=== PATIENT | male | born 1955 | race Caucasian/White ===

== ENCOUNTER 2016-11-22 22:38 | Inpatient (IN) | payer OTHER ==
--- NOTE | ~2016-11-22 | OP ---
Record Of Operation [facility] [address] [place]. [address] NAME: NISSA WRAY : 57 STATUS : ADM IN [facility]#: [id number] AGE: 61 ADM/REG DATE : 11/22/16 MR#: [id number] REPORT SERV DATE: 11/29/16 DICTATED BY: MENG MCKINNEY DATE: 11/29/16 REPORT STATUS : Draft TRANSCRIBED BY: MODL DATE: 11/29/16 DATE OF PROCEDURE: 11/29/2016 PREOPERATIVE DIAGNOSIS: Left forearm gram-positive cocci abscess, status post irrigation debridement and Vac-Pac placement, 11/27/2016 POSTOPERATIVE DIAGNOSIS: Left forearm gram-positive cocci abscess, status post irrigation debridement and Vac-Pac placement, 11/27/2016. PROCEDURE: Left forearm, 1. Repeat cultures. 2. Repeat irrigation and debridement of subcutaneous tissue using pulse lavage (3 L normal saline) and rongeur. 3. Vancomycin/gentamicin antibiotic bead placement. 4. Wound closure. SURGEON: Meng Mckinney M.D. PAPER BAGS SEWING MACHINE OPERATOR: Anam Arvizu. ANESTHESIA: General. ESTIMATED BLOOD LOSS: 2 mL. COMPLICATIONS: None. DISPOSITION: The patient tolerated the procedure well and was brought to recovery room in stable condition. PROCEDURE NOTE: The patient was brought to the operating room and placed in supine position after general anesthesia was administered. A pneumatic tourniquet was placed around the left proximal arm and the left upper extremity distal to the tourniquet was exsanguinated. The dressings were removed. The Vac-Pac was removed. Cultures were taken. Wound inspected and the wound was deemed clean enough for wound closure. Afterwards, the left upper extremity distal to the tourniquet was prepped and draped in the usual sterile manner. 3 L of normal saline was used to irrigate the wound via pulse lavage. A rongeur was used to remove any nonviable tissue in the edges of the incision. This debridement was carried out in the subcutaneous and skin region, and afterwards, the wound was packed with antibiotic beads made with 1 g of vancomycin and 240 mg of gentamicin (3/4th of the beads used). Wound closed was prolonged with Prolene suture, sterile dressing, and a volar splint was applied. Tourniquet was released. Arm was placed back in a sling, and the patient was taken out of general anesthesia and brought to recovery room in stable condition. /MODL Record Of Operation [facility] [address] [facility] [address] NAME: NISSA WRAY : 57 STATUS : ADM IN [facility]#: [id number] AGE: 61 ADM/REG DATE : 11/22/16 MR#: [id number] REPORT SERV DATE: 11/29/16 DICTATED BY: MENG MCKINNEY DATE: 11/29/16 REPORT STATUS : Draft TRANSCRIBED BY: SUE DATE: 11/29/16 Meng Mckinney M.D. / [id number] CC: Belinda Felder M.D.
--- NOTE | ~2016-11-22 | DS ---
Discharge Summary [address] [address] NAME: NISSA WRAY : 57 STATUS : DIS IN PAT#: [id number] AGE: 61 ADM/REG DATE : 11/22/16 MR#: [id number] REPORT SERV DATE: 12/01/16 DICTATED BY: PAULIE EMERY DATE: 11/30/16 REPORT STATUS : Draft TRANSCRIBED BY: MODL DATE: 11/30/16 ADMISSION DATE: 11/22/2016 DISCHARGE DATE: 11/30/2016 DISCHARGE DIAGNOSES: 1. Sepsis. 2. Left arm cellulitis. 3. Left forearm abscess. 4. New diagnosis of uncontrolled diabetes. 5. Hyperlipidemia. OPERATIONS AND PROCEDURES: 1. 11/27/2016, incision, drainage, cultures, debridement of subcutaneous tissue, irrigation using pulse lavage, and VAC pack placement left forearm abscess, Dr. Helton. 2. 11/29/2016, left forearm repeat cultures, repeat irrigation and debridement of subcutaneous tissue using pulse lavage and rongeur. Vancomycin, gentamicin, antibiotic bead placement, wound closure, Dr. Helton. PRESENT ILLNESS: This is a 61-year-old white male, regular patient of Dr. Ho Cadena, who was triaged in the emergency room on 11/22/2016 at 2059 hours with complaints of chilling and left arm swelling. Admission vital signs, blood pressure 125/77, temperature 97.5, pulse 91, respirations 18, O2 saturation 95%. After evaluation in the emergency room, he was referred to the Hospitalist Service for admission. He was seen by Dr. Eric Woodall and admitted as described on admission history and physical examination. Additional history included hitting his left arm against some steel with an abrasion type injury several days prior to admission. He subsequently noticed swelling and pain which accelerated. He developed purulent drainage. He then developed fever and chills and came to the emergency room for evaluation. ADDITIONAL HISTORY: Per Dr. Woodall. PHYSICAL EXAMINATION: Per Dr. Woodall. ADMISSION LABORATORY: Per Dr. Woodall. HOSPITAL COURSE: He was admitted by Dr. Woodall with diagnoses: 1. Sepsis. 2. Left arm cellulitis. 3. Sore throat. 4. Hyperglycemia. He was admitted to [address] [place] [address]. Cultures were obtained. He was placed on IV vancomycin. Discharge Summary [address] [place]. [address] NAME: NISSA WRAY : 57 STATUS : DIS IN PAT#: [id number] AGE: 61 ADM/REG DATE : 11/22/16 MR#: [id number] REPORT SERV DATE: 12/01/16 DICTATED BY: PAULIE EMERY DATE: 11/30/16 REPORT STATUS : Draft TRANSCRIBED BY: MODL DATE: 11/30/16 Insulin was initiated. His hospitalist care was assumed by Dr. Davis. His hospital course from 11/22/2016 through 11/26/2016 is as outlined on the interim summary dictated by Dr. Davis. The patient was subsequently seen by the undersigned on 11/27/2016, 11/28/2016, 11/29/2016, and 11/30/2016. On 11/27/2016, he felt better. His left arm edema and erythema had improved. However, he had a definite left forearm fluctuant swelling with some drainage. Venous ultrasound imaging had been ordered by Dr. Davis the previous day. This demonstrated no DVT, but a complex fluid collection consistent with abscess. Orthopedic Hand consultation was obtained. He was seen quickly by Dr. Helton, whose impression was left forearm abscess. The patient was taken the OR on that date for the procedure as described above. Notable operative findings included "a burst of pus emanated from the area." Remarkably, routine cultures from his initial OR I and D despite a positive gram-positive cocci, gram stain have been negative to date. There were no complications with this procedure. His clinical improvement continued. He was taken back to the OR for a repeat I and D as described on 11/29/2016 which he tolerated well. At the time of the second procedure, Dr. Helton felt, his wound could be closed after placement vancomycin, gentamicin, antibiotic bead placement. When seen on 11/20/2016, except for some burning at his incision, he otherwise felt well and was asymptomatic. He was still on IV vancomycin. Culture data was as noted. His white count was 13.8. His procalcitonin level had fallen from 6.46 on the 11/24/2016 to 0.17 on the 11/30/2016. From an infection standpoint, it was felt that he could safely be discharged to home with outpatient followup to see Dr. Cadena next week and Dr. Helton in [address] Helton had previously indicated that the patient's left arm dressing was to remain clean and dry until followup with him in office. Relative to the patient's diabetes, his hemoglobin A1c was 11.9 on admission. His admission blood glucose was 250. During his hospitalization, he was started on bedtime basal insulin and daytime metformin. 24 hours prior to admission a.c. and h.s. blood sugars were 148, 96, 91, and 182. The morning of discharge, fasting blood sugar 149 a.c., lunch 129. He was seen by diabetes education on 11/26/2016. He was given a glucose meter. He was instructed on insulin pens. Technique was demonstrated and was thought to be satisfactory with the use of same. Discharge Summary [address] [address] NAME: NISSA WRAY : 57 STATUS : DIS IN PAT#: [id number] AGE: 61 ADM/REG DATE : 11/22/16 MR#: [id number] REPORT SERV DATE: 12/01/16 DICTATED BY: PAULIE EMERY DATE: 11/30/16 REPORT STATUS : Draft TRANSCRIBED BY: SUE DATE: 11/30/16 In view of the above, he is being discharged today with followup as described. He will remain off work until outpatient followup and released in the future by Dr. Helton. DISCHARGE MEDICATIONS: Metformin 1000 mg after breakfast and supper, Lantus 20 units at bedtime, Motrin 800 mg every eight hours as needed, Tylenol 650 mg every four to six hours as needed, Pravachol 40 mg at bedtime, Pepcid 20 mg twice daily as needed. Discharge BMP: Sodium 141, potassium 3.8, chloride 104, CO2 of 28, BUN 13, creatinine 1.02, glucose 135, calcium 8.5. Discharge time greater than 30 minutes. DD/MODL Paulie Emery M.D. / [id number] CC: Belinda Felder M.D. Robert Mastey, M.D.
--- NOTE | ~2016-11-22 | HP ---
History And Physical [address] [address] NAME: NISSA WRAY : 57 STATUS : ADM IN [facility]#: [id number] AGE: 61 ADM/REG DATE : 11/22/16 MR#: [id number] REPORT SERV DATE: 11/23/16 DICTATED BY: JUAN ESCALERA DATE: 11/23/16 REPORT STATUS : Draft TRANSCRIBED BY: MODL DATE: 11/23/16 DATE OF ADMISSION: 11/22/2016 CHIEF COMPLAINT: A 61-year-old male presenting with left arm redness and pus drainage. HISTORY OF PRESENT ILLNESS: The patient's history was obtained through careful interview with the patient and , and daughter, coupled with review of [facility] medical records. The patient a few days ago hit his left arm against some steel and injured it with some kind of abrasion. He noticed that it was swelling and hurt over the next few days, but then just in the last two days it began to develop purulent drainage and increasing swelling and pain. He describes left arm pain, an aching type quality, 8/10 severity. He has developed subjective fevers and chills with temperature up to 99.7. He has had diaphoresis tonight leading up to admission, he had nausea and an episode of vomiting. He describes slight lightheadedness and dizziness. No change in urine habit or bowel habit. No shortness of breath. No cough. No chest pain. REVIEW OF SYSTEMS: Otherwise, a 14-point review of systems was obtained and was negative. PAST MEDICAL HISTORY: 1. Gastroesophageal reflux disorder. 2. Elevated cholesterol. 3. Patent foramen ovale. PAST SURGICAL HISTORY: Denies any. ALLERGIES: NO KNOWN DRUG ALLERGIES. SOCIAL HISTORY: No tobacco abuse. No alcohol abuse. He is . Lives in [place], [place]. He works in a [employer] business. He has children. FAMILY HISTORY: Father with diabetes. Mother with heart disease. CURRENT MEDICATIONS: 1. Pepcid 20 mg p.o. b.i.d. 2. Tylenol. 3. Motrin p.r.n. 4. Pravachol 40 mg p.o. daily. History And Physical [address] [address] NAME: NISSA WRAY : 57 STATUS : ADM IN PAT#: [id number] AGE: 61 ADM/REG DATE : 11/22/16 MR#: [id number] REPORT SERV DATE: 11/23/16 DICTATED BY: JUAN ESCALERA DATE: 11/23/16 REPORT STATUS : Draft TRANSCRIBED BY: SUE DATE: 11/23/16 PHYSICAL EXAMINATION: VITAL SIGNS: Temperature 97.5, pulse 91, blood pressure 125/77, respiratory rate 18, and O2 saturation 95% on room air. GENERAL: An ill-appearing male with evidence of distress secondary to left arm pain. HEENT: Pupils equal, round, and reactive to light. No conjunctival pallor. No scleral icterus. Nares are patent. Oropharynx is clear of obstruction. Slightly erythematous pharynx, but with no tonsillar exudates. NECK: Trachea midline. No thyromegaly. LYMPH: No cervical lymphadenopathy. No supraclavicular lymphadenopathy. RESPIRATORY: Clear to auscultation at bases. No wheezes, rales, or rhonchi. Normal respiratory effort. CARDIOVASCULAR: Regular rate and rhythm. No murmurs, rubs, or gallops. No current extremity edema is appreciated. ABDOMEN: Soft, nontender, and nondistended. Normal bowel sounds auscultated throughout. No hepatosplenomegaly. DERMATOLOGICAL: The patient's left arm shows an extensive area of erythema, heat, swelling, tenderness, and an area in his forearm of fluctuance with a small ulceration and copious yellow purulent drainage. Otherwise, warm and dry extremities. No pallor. No cyanosis. PSYCHIATRIC: Normal affect. Good mood. Alert and oriented x3. LABORATORY DATA: White blood cell count 19.9, hemoglobin 15, hematocrit 42, and platelets 229. Sodium 134, potassium 3.5, chloride 100, bicarb 25, BUN 18, creatinine 1.27, glucose 250, and lipase 116. INR 1.2. Lactic acid 1.2. Total bilirubin 2.0. STUDIES: 1. Chest x-ray by my own evaluation shows no acute cardiopulmonary process. 2. EKG by my own evaluation shows sinus rhythm, no major abnormalities. ASSESSMENT AND PLAN: 1. Sepsis. Check blood cultures. Check wound culture. The patient has positive criteria for sepsis including white blood cell count of 19.9, pulse greater than 90, and evidence of infection. Place on IV vancomycin. 2. Left arm cellulitis. Check wound cultures. Place on IV antibiotics. 3. Sore throat. Check strep. 4. Hyperglycemia. Check hemoglobin A1c. Possible new diagnosis diabetes? We will place on sliding scale insulin for now and IV fluids. KPL/MODL Juan Cheung History And Physical [address] [address] NAME: NISSA WRAY : 57 STATUS : ADM IN [facility]#: [id number] AGE: 61 ADM/REG DATE : 11/22/16 MR#: [id number] REPORT SERV DATE: 11/23/16 DICTATED BY: JUAN ESCALERA DATE: 11/23/16 REPORT STATUS : Draft TRANSCRIBED BY: SUE DATE: 11/23/16 Belinda Escalera / [id number] CC: Belinda Felder M.D.
--- NOTE | ~2016-11-22 | OP ---
Record Of Operation [facility] [address] [place]. [address] NAME: NISSA WRAY : 57 STATUS : ADM IN PAT#: [id number] AGE: 61 ADM/REG DATE : 11/22/16 MR#: [id number] REPORT SERV DATE: 11/27/16 DICTATED BY: MENG MCKINNEY DATE: 11/27/16 REPORT STATUS : Draft TRANSCRIBED BY: MODL DATE: 11/27/16 DATE OF PROCEDURE: 11/27/2016 PREOPERATIVE DIAGNOSIS: Left forearm abscess. POSTOPERATIVE DIAGNOSIS: Left forearm abscess. TESTS AND PROCEDURES: Left forearm abscess: 1. Incision. 2. Drainage. 3. Cultures. 4. Debridement of subcutaneous tissue. 5. Irrigation using pulse lavage. 6. Vac-Pac placement. SURGEON: Meng Mckinney M.D. ENTERTAINMENT & MEDIA CORRESPONDENT: Jose L Sesay. ANESTHESIA: General. EBL: 30 mL. IV FLUIDS: 500 LR. SPECIMENS: Cultures taken. DISPOSITION: The patient tolerated the procedure well and was brought to recovery room in stable condition. PROCEDURE NOTE: The patient was brought to the operating room and placed in a supine position. After general anesthesia was administered, a pneumatic tourniquet was placed around the left proximal arm, and the left upper extremity was prepped and draped in the usual sterile manner. A surgical time-out was performed. All were in agreement. The arm was elevated for 5 minutes. Tourniquet was inflated. A 10 blade scalpel was used to make a 7-8 cm longitudinal incision centered over the area of maximal swelling. As soon as the skin was incised, a burst of pus emanated from the area and then after incising it, the area was drained. Cultures were taken and a rongeur was then used to remove the nonviable subcutaneous tissue. The wound was irrigated with copious amounts of normal saline via pulse lavage. A rongeur was brought back into the subcutaneous area to clean up any other questionable areas of viability. After adequate debridement, irrigation continued, and a total of 3 L of normal saline was used to irrigate the wound via pulse lavage. A Vac-Pac sponge was then placed into the wound and cut and contoured to the dimensions of the open subcutaneous pocket. An occlusive airtight dressing was put over the sponge and a hole was made through the plastic to gain access to the sponge. The Vac-Pac Record Of Operation [facility] [address] [place]. [address] NAME: NISSA WRAY : 57 STATUS : ADM IN PAT#: [id number] AGE: 61 ADM/REG DATE : 11/22/16 MR#: [id number] REPORT SERV DATE: 11/27/16 DICTATED BY: MENG MCKINNEY DATE: 11/27/16 REPORT STATUS : Draft TRANSCRIBED BY: MODDavid DATE: 11/27/16 connector was then put to the sponge and then connected to the Vac-Pac suction tube on the other end. Good suction was achieved and the patient's arm was dressed and placed in a long arm splint. Arm was placed in a sling, and the patient was ready to be taken out of general anesthesia, having tolerated the procedure quite well. ANTWON/SUE Meng Mckinney M.D. / [id number] CC: Belinda Felder M.D.
--- NOTE | ~2016-11-22 | HP ---
History And Physical [address] [place]. [address] NAME: GRANT NOLAND : 57 STATUS : ADM IN [facility]#: [id number] AGE: 61 ADM/REG DATE : 11/22/16 MR#: [id number] REPORT SERV DATE: 11/27/16 DICTATED BY: MENG MCKINNEY DATE: 11/27/16 REPORT STATUS : Draft TRANSCRIBED BY: MODDavid DATE: 11/27/16 DATE OF ADMISSION: 11/22/2016 REASON: Left forearm abscess. HISTORY OF PRESENT ILLNESS: Grant Noland is a 61-year-old, [id number] male, who works at [employer], the place that he has worked for the past two years. Prior to that, he worked many years at [employer]. He thought, he was in excellent health and was in his usual state of health until 11/19/2016 when he accidentally nicked/cut his left forearm skin on a metal bar while at home gardening. He washed the wound out with peroxide and over the next three days, the redness and pain and swelling erupted causing admission to this hospital. Upon admission, 11/22/2016, his white count was noted to be 19.9 and hyperglycemia at 250. Since that time, he has been treated with IV antibiotics and his blood sugars were treated for diabetes and his cellulitis has remarkably improved. Unfortunately, there is still an area about the left forearm near the cut lillie, which is still firm, tender, and red, all in keeping with an abscess. PAST MEDICAL HISTORY: 1. Recently diagnosed diabetes. 2. Hypercholesterolemia. PAST SURGICAL HISTORY: Tonsillectomy and adenoidectomy. HOME MEDICATIONS: Pravastatin 40 mg daily. PRESENT MEDICATIONS: Include Lovenox 40 mg every 24 hours, insulin NovoLog sliding scale, Glucophage 1000 mg p.o. WBC, Levemir 40 units subcu. He is also receiving clindamycin and vancomycin. ALLERGIES: NO KNOWN DRUG ALLERGIES. REVIEW OF SYSTEMS: 13-point review of systems reveals no recent increased lethargy, thirst, or urination. There was no fever, chills prior to his admission nor any weight gain, weight loss. The only abnormality noted for 13-point review of systems is he wears reading glasses. SOCIAL HISTORY: He works for [employer]. He has a high school diploma. He is with two daughters who are healthy. Negative for EtOH or tobacco nor any recreational drugs. He is an avid deer tara. FAMILY HISTORY: Both parents . Mother had history of coronary artery disease and throat cancer. Father had dementia and diabetes. He has four sisters, one is diabetic, and one brother who is a diabetic. PHYSICAL EXAMINATION: GENERAL: Pleasant, cooperative 61-year-old male, lying in bed, in no acute distress. History And Physical [address] [address] NAME: GRANT NOLAND : 57 STATUS : ADM IN [facility]#: [id number] AGE: 61 ADM/REG DATE : 11/22/16 MR#: [id number] REPORT SERV DATE: 11/27/16 DICTATED BY: MENG MCKINNEY DATE: 11/27/16 REPORT STATUS : Draft TRANSCRIBED BY: SUE DATE: 11/27/16 VITAL SIGNS: Height 6 feet, weight 220 pounds, blood pressure 126/82, heart rate 70, respiratory rate 18. HEENT: Normocephalic, atraumatic. COR: Regular rate and rhythm. LUNGS: Clear to auscultation. ABDOMEN: Soft, nontender. MUSCULOSKELETAL: C-spine, TLS spine nontender. There is negative Lhermitte and Spurling test. Right shoulder, elbow, wrist, and all fingers with functional range of motion. The left shoulder, elbow, wrist, and all fingers with functional range of motion. Left dorsal radial forearm has an area of redness, firmed, and tenderness in keeping with abscess in the subcutaneous area. He has no pain with finger. He has minimal discomfort with finger and wrist range of motion testing. TLS spine is nontender and both hips, knees, and ankles with no gross deformities. Negative joint tenderness. He is able to ambulate quite well. LYMPHATICS: Negative supraclavicular adenopathy, but left arm with positive axillary adenopathy. There is negative epitrochlear adenopathy, left elbow. The right axillary and right epitrochlear nodes are within normal limits. SKIN: No open wounds, but the left forearm has a very superficial abrasion overlying the abscess, which encompasses a good portion of the dorsal radial forearm. There is tenderness in this region. Otherwise, other places with no other open wounds or sores. IMPRESSION: 1. Left forearm abscess. 2. Recently diagnosed diabetes. PLAN: The patient will benefit from irrigation debridement of wound. He will need several surgeries and the risks and benefits of the surgery were discussed with Grant as well as his Vani. Both had an opportunity to ask questions, and they wished to proceed with surgery. We will plan for this shortly, the first one to be done later today. ANTWON/SUE Meng Mckinney M.D. / [id number] CC: Belinda Felder M.D.
--- NOTE | ~2016-11-22 | IDS ---
Interim Discharge Summary [facility] [address] [place]. [address] NAME: NISSA WRAY : 57 STATUS : ADM IN [facility]#: [id number] AGE: 61 ADM/REG DATE : 11/22/16 MR#: [id number] REPORT SERV DATE: 11/27/16 DICTATED BY: JAMIE KRISHNA DATE: 11/26/16 REPORT STATUS : Draft TRANSCRIBED BY: MODL DATE: 11/26/16 ADMISSION DATE: 11/22/2016 DISCHARGE DATE: WORKING DIAGNOSES: 1. Left arm cellulitis. 2. Sepsis, present on admission, resolved. 3. New onset diabetes with hemoglobin A1c of 11. 4. Hyperlipidemia. CONSULTS: None. PROCEDURES: None. HOSPITAL COURSE: This is a 61-year-old gentleman, who was admitted to the hospital with left arm cellulitis with sepsis. For details, please refer to excellent H and P by Dr. Eric Woodall. In summary, the patient was admitted and was treated with IV vancomycin. The patient did respond to IV vancomycin and was getting better. On the third day of the hospital stay, I attempted to deescalate his antibiotic therapy to IV Ancef and the patient unfortunately did not get much better with IV Ancef. I did also try IV clindamycin for toxin binding, but today, I made a decision to go back to IV vancomycin. The patient initially appeared to have strep cellulitis, but more and more the redness is coalescing into a focus of infection that looks like it is forming into an abscess, so I suspect the patient may be suffering from staph cellulitis. I ordered an ultrasound of the left upper extremity to evaluate for any abscess formation that may potentially need to be drained. The ultrasound will need to be followed up in the morning. As far as his new onset of diabetes goes, the patient is not known to be diabetic, but he was admitted with blood sugar of 20s. The patient was started on p.o. metformin 1000 mg p.o. b.i.d. as the patient's wishes to not be on any insulin when he is discharged. On top of the metformin, the patient was also getting Levemir that was titrated up to 20 units on daily basis and thus, I had a discussion with the patient and the patient's that the patient will probably need an insulin therapy when he gets discharged home. The patient and the family are open to it and diabetic education will be provided. Hopefully, the patient's cellulitis will continue to improve and the patient may be able to return home soon. EDUAR/SUE Jamie Krishna MD / [id number] CC: Interim Discharge Summary [address] [address] NAME: NISSA WRAY : 57 STATUS : ADM IN [facility]#: [id number] AGE: 61 ADM/REG DATE : 11/22/16 MR#: [id number] REPORT SERV DATE: 11/27/16 DICTATED BY: JAMIE KRISHNA DATE: 11/26/16 REPORT STATUS : Draft TRANSCRIBED BY: MODL DATE: 11/26/16 MD Ho Cuevas M.D.
[2016-11-22 22:36] LABS: HEMATOCRIT 42.4 % (40.0-51.0); HEMOGLOBIN 14.9 g/dL (13.6-17.8); MEAN CORPUS HGB CONC 35.1 g/dL (32.0-36.0); MEAN CORPUSCULAR HEMOGLOB 29.3 pg (26.0-34.0); MEAN CORPUSCULAR VOLUME 83.3 fL (80-100); MEAN PLATELET VOLUME 9.9 fL (9.2-13.0); PLATELET COUNT 229 10/3/uL (150-400); RBC DISTRIBUTION WIDTH 12.4 % (12.0-16.0); RED CELL COUNT 5.09 10/6/uL (4.7-6.1); WHITE BLOOD CELLS 19.9 10/3/uL (4.5-10.5)
[2016-11-22 22:42] LABS: MANUAL DIFF YES %
[2016-11-22 22:43] LABS: PARTIAL THROMBO TIME 38.1 SEC (22.5-37.2)
[2016-11-22 22:44] LABS: INTERNATIONAL NORMAL RATI 1.2 UNITS (-); PROTIME (NOT ORD) 15.2 SEC (12.0-14.5)
[2016-11-22] MEDS ORDERED: IBU800 PO (22:46)
[2016-11-22] MEDS ORDERED: PRAVACHOL40 MG PO (22:46)
[2016-11-22] MEDS ORDERED: T PO (22:47)
[2016-11-22] MEDS ORDERED: PEP20 PO (22:47)
[2016-11-22 22:53] LABS: ALBUMIN 3.7 G/DL (3.5-5.0); ALKALINE PHOSPHATASE 119 U/L (45-117); BUN (BLOOD UREA NITROGEN) 18 MG/DL (6-23); CALCIUM, SERUM 9.2 MG/DL (8.5-10.4); CHLORIDE, SERUM 100 MMOL/L (96-112); CO2 (CARBON DIOXIDE) 25 MMOL/L (24-34); CREATININE 1.27 MG/DL (0.70-1.30); GFR AFRICAN AMERICAN 71 ML/MIN (>=60); GFR NON AFRICAN AMERICAN 61 ML/MIN (>=60); GLOBULIN 3.6 G/DL (2.5-4.1); GLUCOSE, SERUM 250 MG/DL (60-99); POTASSIUM, SERUM 3.5 MMOL/L (3.5-5.3); SGOT(AST) 23 U/L (5-40); SGPT(ALT) 48 U/L (5-65); SODIUM, SERUM 134 MMOL/L (135-148); TOTAL PROTEIN 7.3 G/DL (6.0-8.5)
[2016-11-22 22:54] LABS: BAND NEUTROPHILS 3 %; ER DIFF TAT 0 Hrs 22 Mins; LYMPHOCYTES 2 %; MONOCYTES 5 %; NEUTROPHILS ABSOLUTE (CALC) 18.51 10/3/uL (2.02-8.40); PLATELET ESTIMATE ADQ (ADEQUATE); RBC MORPHOLOGY NORM (NORMAL); SEGMENTED NEUTROPHIL (0) 90 %; TOTAL NUCLEATED CELLS 100
[2016-11-22 22:57] LABS: LACTATE 1.2 MMOL/L (0.3-2.4)
[2016-11-23 01:03] LABS: ASCORBIC ACID (UR NOT ORDER) NEG (NEG); BILIRUBIN, URINE NEGATIVE (NEG); ER URINALYSIS TAT 0 Hrs 00 Mins; KETONE, URINE 20 MG/DL (NEG); LEUKOCYTE ESTERASE(NOT OR NEG (NEG); NITRITE (URINE) NEG (NEG); WBC (NOT ORDERED) (RFLEX) 1 (0-5)
[2016-11-23 05:28] LABS: BASOPHILS 0.3 %; BASOPHILS ABSOLUTE 0.05 10/3/uL (0.0-0.16); EOSINOPHILS 0.3 %; EOSINOPHILS ABSOLUTE 0.05 10/3/uL (0.0-0.53); HEMATOCRIT 39.5 % (40.0-51.0); HEMOGLOBIN 13.8 g/dL (13.6-17.8); IMMATURE GRANULOCYTES 0.4 %; IMMATURE GRANULOCYTES ABSOLUTE 0.08 10/3/uL (0.0-0.11); LYMPHOCYTES 6.5 %; LYMPHOCYTES ABSOLUTE 1.29 10/3/uL (0.67-4.30); MEAN CORPUS HGB CONC 34.9 g/dL (32.0-36.0); MEAN CORPUSCULAR HEMOGLOB 29.1 pg (26.0-34.0); MEAN CORPUSCULAR VOLUME 83.2 fL (80-100); MEAN PLATELET VOLUME 9.9 fL (9.2-13.0); MONOCYTES 8.4 %; MONOCYTES ABSOLUTE 1.66 10/3/uL (0.21-1.20); NEUTROPHILS 84.1 %; NEUTROPHILS ABSOLUTE 16.61 10/3/uL (2.02-8.40); PLATELET COUNT 225 10/3/uL (150-400); RBC DISTRIBUTION WIDTH 12.6 % (12.0-16.0); RED CELL COUNT 4.75 10/6/uL (4.7-6.1); WHITE BLOOD CELLS 19.7 10/3/uL (4.5-10.5)
[2016-11-23 05:35] LABS: MANUAL DIFF NO %
[2016-11-23 05:41] LABS: INTERNATIONAL NORMAL RATI 1.2 UNITS (-); PARTIAL THROMBO TIME 39.6 SEC (22.5-37.2); PROTIME (NOT ORD) 15.1 SEC (12.0-14.5)
[2016-11-23 05:44] LABS: A/G RATIO 0.9 (0.7-1.9); ALBUMIN 3.2 G/DL (3.5-5.0); ALKALINE PHOSPHATASE 114 U/L (45-117); BUN (BLOOD UREA NITROGEN) 16 MG/DL (6-23); CALCIUM, SERUM 8.9 MG/DL (8.5-10.4); CHLORIDE, SERUM 102 MMOL/L (96-112); CO2 (CARBON DIOXIDE) 23 MMOL/L (24-34); CREATININE 1.04 MG/DL (0.70-1.30); GFR AFRICAN AMERICAN 90 ML/MIN (>=60); GFR NON AFRICAN AMERICAN 78 ML/MIN (>=60); GLOBULIN 3.7 G/DL (2.5-4.1); GLUCOSE, SERUM 219 MG/DL (60-99); POTASSIUM, SERUM 3.7 MMOL/L (3.5-5.3); SGOT(AST) 16 U/L (5-40); SGPT(ALT) 40 U/L (5-65); SODIUM, SERUM 135 MMOL/L (135-148); TOTAL PROTEIN 6.9 G/DL (6.0-8.5)
[2016-11-23 06:03] LABS: TOTAL BILIRUBIN 1.5 MG/DL (0-1.2)
[2016-11-23 06:50] LABS: B NATRIURETIC PEPTIDE (BNP) 26.1 PG/ML (< 100.0)
[2016-11-23 10:43] LABS: GLYCOHEMOGLOBIN (HbA1c) 11.9 % (4.7-6.1)
[2016-11-24 06:10] LABS: HEMATOCRIT 37.1 % (40.0-51.0); HEMOGLOBIN 12.6 g/dL (13.6-17.8); MEAN CORPUSCULAR HEMOGLOB 28.7 pg (26.0-34.0); MEAN CORPUSCULAR VOLUME 84.5 fL (80-100); MEAN PLATELET VOLUME 9.8 fL (9.2-13.0); PLATELET COUNT 232 10/3/uL (150-400); RBC DISTRIBUTION WIDTH 12.8 % (12.0-16.0); RED CELL COUNT 4.39 10/6/uL (4.7-6.1); WHITE BLOOD CELLS 15.4 10/3/uL (4.5-10.5)
[2016-11-24 06:11] LABS: MANUAL DIFF YES %
[2016-11-24 06:23] LABS: BUN (BLOOD UREA NITROGEN) 19 MG/DL (6-23); CALCIUM, SERUM 8.5 MG/DL (8.5-10.4); CHLORIDE, SERUM 104 MMOL/L (96-112); CO2 (CARBON DIOXIDE) 26 MMOL/L (24-34); CREATININE 1.07 MG/DL (0.70-1.30); GFR AFRICAN AMERICAN 87 ML/MIN (>=60); GFR NON AFRICAN AMERICAN 75 ML/MIN (>=60); GLUCOSE, SERUM 194 MG/DL (60-99); POTASSIUM, SERUM 3.6 MMOL/L (3.5-5.3); SODIUM, SERUM 135 MMOL/L (135-148)
[2016-11-24 07:24] LABS: BAND NEUTROPHILS 10 %; EOSINOPHILS 2 %; EOSINOPHILS ABSOLUTE (CALC) 0.31 10/3/uL (0.0-0.53); LYMPHOCYTES 12 %; LYMPHOCYTES ABSOLUTE (CALC) 1.85 10/3/uL (0.67-4.30); MONOCYTES 9 %; MONOCYTES ABSOLUTE (CALC) 1.39 10/3/uL (0.21-1.20); NEUTROPHILS ABSOLUTE (CALC) 11.86 10/3/uL (2.02-8.40); PLATELET ESTIMATE ADQ (ADEQUATE); SEGMENTED NEUTROPHIL (0) 67 %; TOTAL NUCLEATED CELLS 100
[2016-11-24 07:25] LABS: POLYCHROMASIA 1+ (2-5/OIF) (0-1/OIF); TEARDROP SHAPED RBCS OCC (0-2/OIF); TOXIC GRANULATION SLT; VACUOLATED NEUTROPHILES OCC
[2016-11-24 07:57] LABS: PROCALCITONIN 6.46 ng/mL (<0.5)
[2016-11-25 06:20] LABS: BASOPHILS 0.3 %; BASOPHILS ABSOLUTE 0.04 10/3/uL (0.0-0.16); EOSINOPHILS ABSOLUTE 0.15 10/3/uL (0.0-0.53); HEMATOCRIT 36.2 % (40.0-51.0); HEMOGLOBIN 12.2 g/dL (13.6-17.8); IMMATURE GRANULOCYTES 0.8 %; IMMATURE GRANULOCYTES ABSOLUTE 0.11 10/3/uL (0.0-0.11); LYMPHOCYTES 10.4 %; LYMPHOCYTES ABSOLUTE 1.52 10/3/uL (0.67-4.30); MEAN CORPUS HGB CONC 33.7 g/dL (32.0-36.0); MEAN CORPUSCULAR HEMOGLOB 28.4 pg (26.0-34.0); MEAN CORPUSCULAR VOLUME 84.2 fL (80-100); MEAN PLATELET VOLUME 10.1 fL (9.2-13.0); MONOCYTES 7.3 %; MONOCYTES ABSOLUTE 1.06 10/3/uL (0.21-1.20); NEUTROPHILS 80.2 %; NEUTROPHILS ABSOLUTE 11.68 10/3/uL (2.02-8.40); PLATELET COUNT 266 10/3/uL (150-400); RBC DISTRIBUTION WIDTH 13.1 % (12.0-16.0); WHITE BLOOD CELLS 14.6 10/3/uL (4.5-10.5)
[2016-11-25 06:21] LABS: MANUAL DIFF NO %
[2016-11-25 06:26] LABS: BUN (BLOOD UREA NITROGEN) 16 MG/DL (6-23); CALCIUM, SERUM 8.3 MG/DL (8.5-10.4); CHLORIDE, SERUM 104 MMOL/L (96-112); CO2 (CARBON DIOXIDE) 27 MMOL/L (24-34); CREATININE 1.09 MG/DL (0.70-1.30); GFR AFRICAN AMERICAN 85 ML/MIN (>=60); GFR NON AFRICAN AMERICAN 73 ML/MIN (>=60); POTASSIUM, SERUM 3.5 MMOL/L (3.5-5.3); SODIUM, SERUM 135 MMOL/L (135-148)
[2016-11-25 06:29] LABS: GLUCOSE, SERUM 268 MG/DL (60-99)
[2016-11-25 07:23] LABS: PROCALCITONIN 3.59 ng/mL (<0.5)
[2016-11-26 05:03] LABS: BASOPHILS 0.7 %; EOSINOPHILS 1.8 %; EOSINOPHILS ABSOLUTE 0.26 10/3/uL (0.0-0.53); HEMATOCRIT 38.1 % (40.0-51.0); HEMOGLOBIN 13.1 g/dL (13.6-17.8); IMMATURE GRANULOCYTES 2.2 %; IMMATURE GRANULOCYTES ABSOLUTE 0.32 10/3/uL (0.0-0.11); LYMPHOCYTES 14.3 %; LYMPHOCYTES ABSOLUTE 2.12 10/3/uL (0.67-4.30); MEAN CORPUS HGB CONC 34.4 g/dL (32.0-36.0); MEAN CORPUSCULAR VOLUME 84.3 fL (80-100); MEAN PLATELET VOLUME 9.9 fL (9.2-13.0); MONOCYTES 7.5 %; MONOCYTES ABSOLUTE 1.11 10/3/uL (0.21-1.20); NEUTROPHILS 73.5 %; PLATELET COUNT 314 10/3/uL (150-400); RBC DISTRIBUTION WIDTH 13.2 % (12.0-16.0); RED CELL COUNT 4.52 10/6/uL (4.7-6.1); WHITE BLOOD CELLS 14.8 10/3/uL (4.5-10.5)
[2016-11-26 05:04] LABS: MANUAL DIFF NO %
[2016-11-26 05:12] LABS: CALCIUM, SERUM 8.6 MG/DL (8.5-10.4); CHLORIDE, SERUM 106 MMOL/L (96-112); CO2 (CARBON DIOXIDE) 25 MMOL/L (24-34); CREATININE 0.88 MG/DL (0.70-1.30); GFR AFRICAN AMERICAN 108 ML/MIN (>=60); GFR NON AFRICAN AMERICAN 93 ML/MIN (>=60); POTASSIUM, SERUM 3.5 MMOL/L (3.5-5.3); SODIUM, SERUM 139 MMOL/L (135-148)
[2016-11-26 05:13] LABS: BUN (BLOOD UREA NITROGEN) 10 MG/DL (6-23); GLUCOSE, SERUM 184 MG/DL (60-99)
[2016-11-26 06:01] LABS: PROCALCITONIN 1.57 ng/mL (<0.5)
[2016-11-27 07:08] LABS: HEMATOCRIT 40.9 % (40.0-51.0); HEMOGLOBIN 13.8 g/dL (13.6-17.8); MEAN CORPUS HGB CONC 33.7 g/dL (32.0-36.0); MEAN CORPUSCULAR HEMOGLOB 28.8 pg (26.0-34.0); MEAN CORPUSCULAR VOLUME 85.4 fL (80-100); MEAN PLATELET VOLUME 9.7 fL (9.2-13.0); PLATELET COUNT 358 10/3/uL (150-400); RBC DISTRIBUTION WIDTH 13.2 % (12.0-16.0); RED CELL COUNT 4.79 10/6/uL (4.7-6.1); WHITE BLOOD CELLS 14.6 10/3/uL (4.5-10.5)
[2016-11-27 07:19] LABS: BUN (BLOOD UREA NITROGEN) 7 MG/DL (6-23); CALCIUM, SERUM 8.7 MG/DL (8.5-10.4); CHLORIDE, SERUM 107 MMOL/L (96-112); CO2 (CARBON DIOXIDE) 24 MMOL/L (24-34); CREATININE 0.84 MG/DL (0.70-1.30); GFR AFRICAN AMERICAN 110 ML/MIN (>=60); GFR NON AFRICAN AMERICAN 95 ML/MIN (>=60); MANUAL DIFF YES %; POTASSIUM, SERUM 3.7 MMOL/L (3.5-5.3); SODIUM, SERUM 141 MMOL/L (135-148)
[2016-11-27 07:20] LABS: GLUCOSE, SERUM 114 MG/DL (60-99)
[2016-11-27 08:03] LABS: PROCALCITONIN 1.03 ng/mL (<0.5)
[2016-11-27 08:32] LABS: BAND NEUTROPHILS 10 %; BASOPHILS 1 %; BASOPHILS ABSOLUTE (CALC) 0.15 10/3/uL (0.0-0.16); EOSINOPHILS 2 %; EOSINOPHILS ABSOLUTE (CALC) 0.29 10/3/uL (0.0-0.53); IMMATURE GRANS ABSOLUTE (CALC) 0.73 10/3/uL (0.0-0.11); LYMPHOCYTES 13 %; METAMYELOCYTES 4 %; MONOCYTES 2 %; MONOCYTES ABSOLUTE (CALC) 0.29 10/3/uL (0.21-1.20); MYELOCYTES 1 %; NEUTROPHILS ABSOLUTE (CALC) 11.24 10/3/uL (2.02-8.40); PLATELET ESTIMATE ADQ (ADEQUATE); RBC MORPHOLOGY NORM (NORMAL); SEGMENTED NEUTROPHIL (0) 67 %; TOTAL NUCLEATED CELLS 100
[2016-11-28 05:20] LABS: HEMATOCRIT 41.2 % (40.0-51.0); HEMOGLOBIN 13.8 g/dL (13.6-17.8); MEAN CORPUS HGB CONC 33.5 g/dL (32.0-36.0); MEAN CORPUSCULAR HEMOGLOB 28.6 pg (26.0-34.0); MEAN CORPUSCULAR VOLUME 85.3 fL (80-100); MEAN PLATELET VOLUME 9.7 fL (9.2-13.0); PLATELET COUNT 414 10/3/uL (150-400); RBC DISTRIBUTION WIDTH 13.3 % (12.0-16.0); RED CELL COUNT 4.83 10/6/uL (4.7-6.1)
[2016-11-28 05:25] LABS: MANUAL DIFF YES %
[2016-11-28 05:32] LABS: CALCIUM, SERUM 8.9 MG/DL (8.5-10.4); CHLORIDE, SERUM 104 MMOL/L (96-112); CO2 (CARBON DIOXIDE) 27 MMOL/L (24-34); CREATININE 0.92 MG/DL (0.70-1.30); GFR AFRICAN AMERICAN 104 ML/MIN (>=60); GFR NON AFRICAN AMERICAN 90 ML/MIN (>=60); SODIUM, SERUM 136 MMOL/L (135-148)
[2016-11-28 05:33] LABS: BUN (BLOOD UREA NITROGEN) 12 MG/DL (6-23); GLUCOSE, SERUM 214 MG/DL (60-99); POTASSIUM, SERUM 4.8 MMOL/L (3.5-5.3)
[2016-11-28 07:27] LABS: BAND NEUTROPHILS 6 %; LYMPHOCYTES 15 %; METAMYELOCYTES 3 %; MONOCYTES 10 %; SEGMENTED NEUTROPHIL (0) 66 %; TOTAL NUCLEATED CELLS 100
[2016-11-28 07:28] LABS: PLATELET ESTIMATE INC (ADEQUATE); RBC MORPHOLOGY NORM (NORMAL)
[2016-11-29 06:40] LABS: HEMATOCRIT 43.4 % (40.0-51.0); HEMOGLOBIN 14.6 g/dL (13.6-17.8); MEAN CORPUS HGB CONC 33.6 g/dL (32.0-36.0); MEAN CORPUSCULAR HEMOGLOB 28.9 pg (26.0-34.0); MEAN CORPUSCULAR VOLUME 85.8 fL (80-100); MEAN PLATELET VOLUME 9.7 fL (9.2-13.0); PLATELET COUNT 463 10/3/uL (150-400); RBC DISTRIBUTION WIDTH 13.4 % (12.0-16.0); RED CELL COUNT 5.06 10/6/uL (4.7-6.1); WHITE BLOOD CELLS 12.7 10/3/uL (4.5-10.5)
[2016-11-29 06:41] LABS: MANUAL DIFF YES %
[2016-11-29 06:51] LABS: PROTIME (NOT ORD) 13.2 SEC (12.0-14.5)
[2016-11-29 06:59] LABS: ALBUMIN 2.8 G/DL (3.5-5.0); ALKALINE PHOSPHATASE 148 U/L (45-117); BUN (BLOOD UREA NITROGEN) 13 MG/DL (6-23); CALCIUM, SERUM 8.9 MG/DL (8.5-10.4); CHLORIDE, SERUM 101 MMOL/L (96-112); CO2 (CARBON DIOXIDE) 28 MMOL/L (24-34); CREATININE 0.96 MG/DL (0.70-1.30); DIRECT BILIRUBIN 0.1 MG/DL (0.0-0.4); GFR AFRICAN AMERICAN 99 ML/MIN (>=60); GFR NON AFRICAN AMERICAN 86 ML/MIN (>=60); GLUCOSE, SERUM 167 MG/DL (60-99); INDIRECT BILIRUBIN(NOT ORDER) 0.3 MG/DL (0.1-0.9); SGPT(ALT) 40 U/L (5-65); SODIUM, SERUM 138 MMOL/L (135-148); TOTAL BILIRUBIN 0.4 MG/DL (0-1.2); TOTAL PROTEIN 6.9 G/DL (6.0-8.5)
[2016-11-29 07:01] LABS: SGOT(AST) 28 U/L (5-40)
[2016-11-29 07:42] LABS: BAND NEUTROPHILS 11 %; BASOPHILS 1 %; BASOPHILS ABSOLUTE (CALC) 0.13 10/3/uL (0.0-0.16); EOSINOPHILS 3 %; EOSINOPHILS ABSOLUTE (CALC) 0.38 10/3/uL (0.0-0.53); LYMPHOCYTES 24 %; LYMPHOCYTES ABSOLUTE (CALC) 3.05 10/3/uL (0.67-4.30); MONOCYTES 6 %; MONOCYTES ABSOLUTE (CALC) 0.76 10/3/uL (0.21-1.20); NEUTROPHILS ABSOLUTE (CALC) 8.38 10/3/uL (2.02-8.40); PLATELET ESTIMATE SLT INC (ADEQUATE); RBC MORPHOLOGY NORM (NORMAL); SEGMENTED NEUTROPHIL (0) 55 %; TOTAL NUCLEATED CELLS 100; TOXIC GRANULATION 1+
[2016-11-30 05:24] LABS: HEMATOCRIT 44.3 % (40.0-51.0); HEMOGLOBIN 14.7 g/dL (13.6-17.8); MEAN CORPUS HGB CONC 33.2 g/dL (32.0-36.0); MEAN CORPUSCULAR HEMOGLOB 28.7 pg (26.0-34.0); MEAN CORPUSCULAR VOLUME 86.5 fL (80-100); MEAN PLATELET VOLUME 9.1 fL (9.2-13.0); PLATELET COUNT 422 10/3/uL (150-400); RBC DISTRIBUTION WIDTH 13.3 % (12.0-16.0); RED CELL COUNT 5.12 10/6/uL (4.7-6.1); WHITE BLOOD CELLS 13.8 10/3/uL (4.5-10.5)
[2016-11-30 05:27] LABS: MANUAL DIFF YES %
[2016-11-30 05:45] LABS: BAND NEUTROPHILS 4 %; EOSINOPHILS 2 %; EOSINOPHILS ABSOLUTE (CALC) 0.28 10/3/uL (0.0-0.53); IMMATURE GRANS ABSOLUTE (CALC) 0.41 10/3/uL (0.0-0.11); LYMPHOCYTES 8 %; METAMYELOCYTES 3 %; MONOCYTES 5 %; MONOCYTES ABSOLUTE (CALC) 0.69 10/3/uL (0.21-1.20); NEUTROPHILS ABSOLUTE (CALC) 11.32 10/3/uL (2.02-8.40); PLATELET ESTIMATE ADQ (ADEQUATE); RBC MORPHOLOGY NORM (NORMAL); SEGMENTED NEUTROPHIL (0) 78 %; TOTAL NUCLEATED CELLS 100
[2016-11-30 05:46] LABS: BUN (BLOOD UREA NITROGEN) 13 MG/DL (6-23); CALCIUM, SERUM 8.5 MG/DL (8.5-10.4); CHLORIDE, SERUM 104 MMOL/L (96-112); CO2 (CARBON DIOXIDE) 28 MMOL/L (24-34); CREATININE 1.02 MG/DL (0.70-1.30); GFR AFRICAN AMERICAN 92 ML/MIN (>=60); GFR NON AFRICAN AMERICAN 80 ML/MIN (>=60); GLUCOSE, SERUM 135 MG/DL (60-99); POTASSIUM, SERUM 3.8 MMOL/L (3.5-5.3); SODIUM, SERUM 141 MMOL/L (135-148)
[2016-11-30 06:17] LABS: PROCALCITONIN 0.17 ng/mL (<0.5)
[2016-11-30] MEDS ORDERED: GLUCOPHAGE1000 MG PO (10:49)
[2016-11-30] MEDS ORDERED: LANTUS SC (10:49)
[2016-11-30] MEDS ORDERED: DURICEF PO (10:50)
== END 2016-11-30 12:50 | disposition home or self-care (01) | DRG 854 ==
LOC: ER 22:38 → 6NO 23:24
PROVIDERS: Hospitalist; Internal Medicine; Nurse Practitioner; Orthopaedic Surgery Hand Surgery
PROC: 0JBH0ZZ Excision of Left Lower Arm Subcutaneous Tissue and Fascia, Open Approach (ICD-10-PCS; principal; 2016-11-27 20:45)
PROC: 0JBH0ZZ Excision of Left Lower Arm Subcutaneous Tissue and Fascia, Open Approach (ICD-10-PCS; 2016-11-29)
DX: A41.9 Sepsis, unspecified organism (principal); L03.114 Cellulitis of left upper limb; E11.65 Type 2 diabetes mellitus with hyperglycemia; Q21.1 Atrial septal defect; L02.414 Cutaneous abscess of left upper limb; E78.5 Hyperlipidemia, unspecified; J02.9 Acute pharyngitis, unspecified; W22.8XXA Striking against or struck by other objects, initial encounter; K21.9 Gastro-esophageal reflux disease without esophagitis; E78.00 Pure hypercholesterolemia, unspecified; Z83.3 Family history of diabetes mellitus
CPT/HCPCS: 71020; 80048; 80053; 80076; 80202; 81001; 82962; 83036; 83605; 83690; 83735; 83880; 84145; 84443; 85025; 85610; 85730; 87015; 87040; 87070; 87075; 87102; 87116; 87205; 87880; 93005; 93971; 99284; A9270-GY; C1713; J0330; J0690; J2250; J2270; J2405; J3010; J3370